=== PATIENT | male | born 1990 | race Hispanic/Latino ===

== ENCOUNTER 2021-12-27 21:33 | Emergency (ER) | payer BC ==
[2021-12-27] MEDS ORDERED: Morphine 4 MG/ML VIAL ONE (22:01)
[2021-12-27] MEDS ORDERED: Ondansetron PF 4 MG/2 ML Vial ONE (22:01)
[2021-12-27 22:10] LABS: #Eosinphils 0.1 thou/uL (0.0-0.7); #Lymphocytes 0.8 thou/uL (1.20-3.40); #Monocytes 0.4 thou/uL (0.11-0.59); #Neutrophils 9.2 thou/uL (1.40-6.50); %Basophils 0.4 % (0.0-1.0); %Eosinophils 0.5 % (0.0-10.0); %Lymphocytes 7.4 % (21.0-51.0); %Monocytes 3.7 % (0.0-10.0); Hemoglobin 15.8 g/dL (14.0-18.0); Mean Corpuscular HGB CONC 33.7 g/dL (32.0-36.0); Mean Corpuscular Hemoglobin 29.4 pg (27.0-31.0); Mean Corpuscular Volume 87.2 fL (78.0-98.0); Mean Platelet Volume 7.7 fL (7.4-10.4); Platelet Count 174 thou/uL (130-400); RBC Distribution Width 13.4 % (11.5-14.5); Red Blood Cell (RBC) Count 5.38 mill/uL (4.70-6.10); White Blood Cell (WBC) Count 10.5 thou/uL (4.8-10.8)
[2021-12-27 22:29] LABS: ALT (SGPT) 26 U/L (8-55); AST (SGOT) 19 U/L (5-34); Albumin 4.5 g/dL (3.5-5.0); Alkaline Phosphatase 83 U/L (40-110); Anion Gap 16 mmol/L (10-20); BUN (Urea Nitrogen) 15 mg/dL (8.9-20.6); Calc. Creatinine Clearance 0 mL/min (70-130); Calcium 9.2 mg/dL (7.8-10.44); Carbon Dioxide 21 mmol/L (22-29); Chloride 104 mmol/L (98-107); Globulin 3.5 g/dL (2.4-3.5); Glucose 116 mg/dL (70-105); Lipase 30 U/L (8-78); Potassium 3.7 mmol/L (3.5-5.1); Sodium 137 mmol/L (136-145)
== END 2021-12-27 23:15 | disposition home or self-care (01) ==
LOC: ERS 21:33
DX: R11.2 Nausea with vomiting, unspecified (principal); R10.13 Epigastric pain
CPT/HCPCS: 74177; 80053; 83690; 85025; 96374; 96375; J2270; J2405

== ENCOUNTER 2023-02-23 20:52 | Inpatient (IN) | payer BC ==
[2023-02-23] MEDS ORDERED: Magnesium 2 GM/50 ML BAG (IN WATER) ONE (21:13)
[2023-02-23] MEDS ORDERED: Ketorolac Tromethamine 30 MG/ML VIAL ONE (21:13)
[2023-02-23] MEDS ORDERED: diphenhydrAMINE 50 MG/ML VIAL ONE (21:13)
[2023-02-23] MEDS ORDERED: Acetaminophen 325 MG TAB ONE (21:13)
[2023-02-23] MEDS ORDERED: Cefepime 2 GM VIAL ONE (21:40)
[2023-02-23] MEDS ORDERED: Vancomycin HCl 2.5 GM in Sodium Chloride 0.9% 500 ML IVPB SCH (21:45)
[2023-02-23 21:54] LABS: #Monocytes 0.3 thou/uL (0.11-0.59); #Neutrophils 2.9 thou/uL (1.40-6.50); %Basophils 1.1 % (0.0-1.0); %Lymphocytes 14.5 % (21.0-51.0); %Monocytes 7.4 % (0.0-10.0); %Neutrophils 75.2 % (42.0-75.0); Hemoglobin 16.2 g/dL (14.0-18.0); Mean Corpuscular HGB CONC 34.8 g/dL (32.0-36.0); Mean Corpuscular Hemoglobin 29.7 pg (27.0-31.0); Mean Corpuscular Volume 85.2 fl (78.0-98.0); Mean Platelet Volume 10.6 fL (7.4-10.4); Platelet Count 149 10x3/uL (130-400); RBC Distribution Width 14.1 % (11.5-14.5); Red Blood Cell (RBC) Count 5.46 mill/uL (4.70-6.10); White Blood Cell (WBC) Count 3.8 10x3/uL (4.8-10.8)
[2023-02-23] MEDS ORDERED: VANCOMYCIN 2 GRAM/500 ML BAG 2 GM in Premix Bag 1 BAG IVPB SCH (22:00)
[2023-02-23 22:05] LABS: ALT (SGPT) 56 U/L (8-55); AST (SGOT) 31 U/L (5-34); Albumin 4.5 g/dL (3.5-5.0); Alkaline Phosphatase 83 U/L (40-110); Anion Gap 16 mmol/L (10-20); BUN (Urea Nitrogen) 12 mg/dL (8.9-20.6); Bilirubin, Total 0.7 mg/dL (0.2-1.2); Calc. Creatinine Clearance 0 mL/min (70-130); Carbon Dioxide 23 mmol/L (22-29); Chloride 100 mmol/L (98-107); Estimated GFR 96; Globulin 3.5 g/dL (2.4-3.5); Glucose 117 mg/dL (70-105); Lipase 27 U/L (8-78); Potassium 3.8 mmol/L (3.5-5.1); Sodium 135 mmol/L (136-145)
[2023-02-23 22:37] LABS: Bacteria/HPF None Seen HPF (None Seen); Bilirubin Negative (Negative); Blood, Urine Negative (Negative); CAUTI Indications for Culture Dysuria,urgency,freq; Clarity Clear (Clear); Glucose, Urine (Dipstick) Normal (Negative); Ketone, Urine Negative (Negative); Leukocyte Negative Leu/uL (Negative); Nitrite Negative (Negative); Protein, Urine (Dipstick) 20 mg/dL (Neg-Trace); RBC/HPF 0-3 HPF (0-3); Squamous Epithelial None Seen HPF (0-3); Urobilinogen Normal mg/dL (Less than 2); WBC/HPF 0-3 HPF (0-3)
[2023-02-23 22:39] LABS: Urine Culture Reflex No No
[2023-02-23 22:41] LABS: SARS-CoV-2 NAA Rapid Test Not Detected (NotDetected)
[2023-02-23 22:45] LABS: Amphetamine Not Detected (NotDetected); Barbiturates Screen Not Detected (NotDetected); Benzodiazepine Screen Not Detected (NotDetected); Cocaine Metabolite Screen Not Detected (NotDetected); Methadone Not Detected (NotDetected); Methamphetamine Not Detected (NotDetected); Opiate Screen Not Detected (NotDetected); Oxycodone Screen Not Detected (NotDetected); Phencyclidine (PCP) Not Detected (NotDetected); THC/Cannabinoid Screen Not Detected (NotDetected); Tricyclic Screen Not Detected (NotDetected)
[2023-02-24 01:01] VITALS: BMI 38.2
[2023-02-24 01:14] LABS: D-Dimer Test 1.19 *mcg/mL (0.27-0.43)
[2023-02-24] MEDS: Lactated Ringer's 1,000 ML IV SCH ×2 (01:32→08:30)
[2023-02-24 02:22] LABS: HBSAg Index 0.25 S/CO (0-0.99); HIV (1/2) Antibody/Antigen Non-Reactive (NonReactive); HIV 1/2 INDEX 0.09 S/CO (<1.00); Hep A IgM AB Non-Reactive S/CO (NonReactive); Hep A IgM S/CO 0.32 S/CO (0-0.79); Hep B Surf Ag Non-Reactive S/CO (NonReactive); Hep C IgG Ab Non-Reactive S/CO (NonReactive); Hep C Index 0.07 S/CO (0-0.79); Hepatitis B Core IgM Abs Non-Reactive S/CO (NonReactive)
[2023-02-24] MEDS: Acetaminophen 325 MG TAB PO PRN ×2 (03:54→10:45)
[2023-02-24] MEDS ORDERED: Sodium Chloride 0.9% 1,000 ML IV SCH (06:15)
[2023-02-24 07:58] LABS: Prothrombin Time 13.9 sec (12.0-14.7)
[2023-02-24] MEDS ORDERED: cefTRIAXone\\ROCEPHIN 1 GM in Sodium Chloride 0.9% 100 ML IVPB SCH (08:00)
[2023-02-24 08:40] LABS: #Monocytes 0.4 thou/uL (0.11-0.59); #Neutrophils 2.6 thou/uL (1.40-6.50); %Basophils 0.5 % (0.0-1.0); %Lymphocytes 20.6 % (21.0-51.0); %Neutrophils 68.1 % (42.0-75.0); Hemoglobin 15.6 g/dL (14.0-18.0); Mean Corpuscular HGB CONC 34.4 g/dL (32.0-36.0); Mean Corpuscular Hemoglobin 29.7 pg (27.0-31.0); Mean Corpuscular Volume 86.1 fl (78.0-98.0); Mean Platelet Volume 10.4 fL (7.4-10.4); Platelet Count 127 10x3/uL (130-400); RBC Distribution Width 14.5 % (11.5-14.5); Red Blood Cell (RBC) Count 5.26 mill/uL (4.70-6.10); White Blood Cell (WBC) Count 3.8 10x3/uL (4.8-10.8)
[2023-02-24 09:00] LABS: ALT (SGPT) 48 U/L (8-55); AST (SGOT) 30 U/L (5-34); Albumin 3.9 g/dL (3.5-5.0); Alkaline Phosphatase 75 U/L (40-110); Anion Gap 14 mmol/L (10-20); BUN (Urea Nitrogen) 9 mg/dL (8.9-20.6); Bilirubin, Total 0.7 mg/dL (0.2-1.2); Calc. Creatinine Clearance 203 mL/min (70-130); Calcium 8.5 mg/dL (7.8-10.44); Carbon Dioxide 22 mmol/L (22-29); Chloride 104 mmol/L (98-107); Estimated GFR 117; Glucose 115 mg/dL (70-105); Potassium 3.8 mmol/L (3.5-5.1); Protein, Total 6.9 g/dL (6.0-8.3); Sodium 136 mmol/L (136-145)
[2023-02-24] MEDS ORDERED: Iopamidol-370 76% 500 ML MDV (1 ML CHARGE) ONE (10:05)
[2023-02-24] MEDS: Ibuprofen 200 MG TAB PO PRN ×2 (10:46→21:28)
[2023-02-24 12:46] LABS: Legionella Urinary Ag Negative (Negative)
[2023-02-24] MEDS: Ondansetron ODT 4 MG TAB PO PRN (20:51)
[2023-02-25 05:14] LABS: #Monocytes 0.5 thou/uL (0.11-0.59); #Neutrophils 3.1 thou/uL (1.40-6.50); %Basophils 0.4 % (0.0-1.0); %Eosinophils 0.2 % (0.0-10.0); %Lymphocytes 27.2 % (21.0-51.0); %Monocytes 10.3 % (0.0-10.0); %Neutrophils 61.3 % (42.0-75.0); Hemoglobin 15.7 g/dL (14.0-18.0); Mean Corpuscular HGB CONC 33.7 g/dL (32.0-36.0); Mean Corpuscular Hemoglobin 29.6 pg (27.0-31.0); Mean Corpuscular Volume 87.8 fl (78.0-98.0); Mean Platelet Volume 11.1 fL (7.4-10.4); RBC Distribution Width 14.6 % (11.5-14.5); Red Blood Cell (RBC) Count 5.31 mill/uL (4.70-6.10); White Blood Cell (WBC) Count 5.1 10x3/uL (4.8-10.8)
[2023-02-25 05:35] LABS: ALT (SGPT) 47 U/L (8-55); AST (SGOT) 32 U/L (5-34); Alkaline Phosphatase 74 U/L (40-110); Anion Gap 15 mmol/L (10-20); BUN (Urea Nitrogen) 11 mg/dL (8.9-20.6); Bilirubin, Total 0.7 mg/dL (0.2-1.2); Calc. Creatinine Clearance 159 mL/min (70-130); Carbon Dioxide 25 mmol/L (22-29); Chloride 102 mmol/L (98-107); Estimated GFR 91; Globulin 3.3 g/dL (2.4-3.5); Glucose 97 mg/dL (70-105); Potassium 4.2 mmol/L (3.5-5.1); Protein, Total 7.3 g/dL (6.0-8.3); Sodium 138 mmol/L (136-145)
[2023-02-25 05:36] LABS: Platelet Count 121 10x3/uL (130-400)
[2023-02-25] MEDS: Acetaminophen 325 MG TAB PO PRN ×3 (08:21→20:46)
[2023-02-25] MEDS: Ondansetron ODT 4 MG TAB PO PRN ×2 (08:24→20:46)
[2023-02-25] MEDS ORDERED: Lactated Ringer's 1,000 ML IV SCH (10:00)
[2023-02-25] MEDS ORDERED: Metoprolol Tartrate 25 MG TAB PO SCH ×2 (12:15→21:00)
[2023-02-26 04:45] LABS: Hemoglobin 14.7 g/dL (14.0-18.0); Mean Corpuscular HGB CONC 34.1 g/dL (32.0-36.0); Mean Corpuscular Hemoglobin 29.2 pg (27.0-31.0); Mean Corpuscular Volume 85.5 fl (78.0-98.0); Mean Platelet Volume 10.2 fL (7.4-10.4); Platelet Count 123 10x3/uL (130-400); RBC Distribution Width 14.7 % (11.5-14.5); Red Blood Cell (RBC) Count 5.04 mill/uL (4.70-6.10); White Blood Cell (WBC) Count 6.3 10x3/uL (4.8-10.8)
[2023-02-26 04:52] LABS: Hemoglobin A1c 5.4 % (4.0-6.0)
[2023-02-26 04:58] LABS: Delete Auto Diff?? YES; Manual Diff?? YES
[2023-02-26 05:07] LABS: ALT (SGPT) 41 U/L (8-55); AST (SGOT) 29 U/L (5-34); Albumin 3.9 g/dL (3.5-5.0); Alkaline Phosphatase 67 U/L (40-110); Anion Gap 14 mmol/L (10-20); BUN (Urea Nitrogen) 13 mg/dL (8.9-20.6); Bilirubin, Total 1.1 mg/dL (0.2-1.2); Calc. Creatinine Clearance 168 mL/min (70-130); Carbon Dioxide 23 mmol/L (22-29); Cardiac Risk 7.9 (Less than 4.5); Chloride 102 mmol/L (98-107); Cholesterol 151 mg/dl (< 200 Desired); Estimated GFR 97; Globulin 3.4 g/dL (2.4-3.5); Glucose 98 mg/dL (70-105); HDL Cholesterol 19 mg/dL (>60 Neg Risk); LDL Cholesterol, Calculated 97 mg/dL; Potassium 3.8 mmol/L (3.5-5.1); Protein, Total 7.3 g/dL (6.0-8.3); Sodium 135 mmol/L (136-145); Triglycerides 176 mg/dL (Less than 150)
[2023-02-26 05:29] LABS: Band 5 % (5-11); Burr Cells SLIGHT = 2-5 cells HPF (0-1); Large Platelets 3.9 % (0-5); Lymphocytes 22 % (21-51); Microcytosis SLIGHT = 6-15 cells HPF (0-5); Monocytes 20 % (0-10); Neutrophil 47 % (42-75); Platelet Adequacy Comment Platelets Decreased; Polychromasia SLIGHT = 2-3 cells HPF (0-2); Reactive Lymphocytes 5 % (0-10); Total Cell Count 103
[2023-02-26] MEDS: Sacubitril 24MG/Valsartan 26 MG TAB PO SCH ×2 (11:32→20:29)
[2023-02-27 05:46] LABS: #Basophils 0.2 thou/uL (0.0-0.2); #Eosinphils 0.1 thou/uL (0.0-0.7); #Monocytes 0.6 thou/uL (0.11-0.59); #Neutrophils 2.9 thou/uL (1.40-6.50); %Eosinophils 1.1 % (0.0-10.0); %Lymphocytes 53.4 % (21.0-51.0); %Monocytes 7.6 % (0.0-10.0); %Neutrophils 35.4 % (42.0-75.0); Hemoglobin 14.8 g/dL (14.0-18.0); Mean Corpuscular HGB CONC 33.3 g/dL (32.0-36.0); Mean Corpuscular Hemoglobin 28.9 pg (27.0-31.0); Mean Corpuscular Volume 86.9 fl (78.0-98.0); Mean Platelet Volume 11.2 fL (7.4-10.4); Platelet Count 152 10x3/uL (130-400); RBC Distribution Width 14.5 % (11.5-14.5); Red Blood Cell (RBC) Count 5.12 mill/uL (4.70-6.10); White Blood Cell (WBC) Count 8.2 10x3/uL (4.8-10.8)
[2023-02-27 05:55] LABS: Manual Diff?? YES
[2023-02-27 06:26] LABS: ALT (SGPT) 62 U/L (8-55); AST (SGOT) 44 U/L (5-34); Albumin 3.9 g/dL (3.5-5.0); Alkaline Phosphatase 67 U/L (40-110); Anion Gap 15 mmol/L (10-20); BUN (Urea Nitrogen) 14 mg/dL (8.9-20.6); Bilirubin, Total 0.5 mg/dL (0.2-1.2); Calc. Creatinine Clearance 176 mL/min (70-130); Calcium 9.2 mg/dL (7.8-10.44); Carbon Dioxide 22 mmol/L (22-29); Chloride 105 mmol/L (98-107); Estimated GFR 103; Globulin 3.4 g/dL (2.4-3.5); Glucose 98 mg/dL (70-105); Potassium 3.8 mmol/L (3.5-5.1); Protein, Total 7.3 g/dL (6.0-8.3); Sodium 138 mmol/L (136-145)
[2023-02-27 07:46] LABS: Band 5 % (5-11); CellaVision Operator ID LAB.GE; Eosinophils 1 % (0-10); Lymphocytes 34 % (21-51); Monocytes 7 % (0-10); Neutrophil 40 % (42-75); Platelet Adequacy Comment Platelets Normal; Polychromasia SLIGHT = 2-3 cells HPF (0-2); Reactive Lymphocytes 12 % (0-10); Total Cell Count 100
[2023-02-27] MEDS: Sacubitril 24MG/Valsartan 26 MG TAB PO SCH ×2 (08:59→20:42)
[2023-02-27] MEDS ORDERED: Empagliflozin 10 MG TAB PO SCH (10:45)
[2023-02-27 13:24] LABS: SARS-CoV-2 NAA Rapid Test Not Detected (NotDetected)
[2023-02-28 05:44] LABS: #Basophils 0.1 thou/uL (0.0-0.2); #Eosinphils 0.2 thou/uL (0.0-0.7); #Monocytes 0.4 thou/uL (0.11-0.59); #Neutrophils 3.3 thou/uL (1.40-6.50); %Basophils 0.8 % (0.0-1.0); %Eosinophils 1.7 % (0.0-10.0); %Lymphocytes 55.7 % (21.0-51.0); %Monocytes 4.8 % (0.0-10.0); %Neutrophils 36.2 % (42.0-75.0); Mean Corpuscular Hemoglobin 29.3 pg (27.0-31.0); Mean Corpuscular Volume 86.1 fl (78.0-98.0); Mean Platelet Volume 10.8 fL (7.4-10.4); Platelet Count 192 10x3/uL (130-400); RBC Distribution Width 14.4 % (11.5-14.5); Red Blood Cell (RBC) Count 5.12 mill/uL (4.70-6.10)
[2023-02-28 06:47] LABS: ALT (SGPT) 64 U/L (8-55); AST (SGOT) 39 U/L (5-34); Alkaline Phosphatase 65 U/L (40-110); Anion Gap 17 mmol/L (10-20); BUN (Urea Nitrogen) 16 mg/dL (8.9-20.6); Bilirubin, Total 0.4 mg/dL (0.2-1.2); Calc. Creatinine Clearance 203 mL/min (70-130); Calcium 9.3 mg/dL (7.8-10.44); Carbon Dioxide 19 mmol/L (22-29); Chloride 105 mmol/L (98-107); Estimated GFR 117; Globulin 3.6 g/dL (2.4-3.5); Glucose 96 mg/dL (70-105); Protein, Total 7.6 g/dL (6.0-8.3); Sodium 137 mmol/L (136-145)
[2023-02-28] MEDS ORDERED: Spironolactone 25 MG TAB PO SCH (08:00)
[2023-02-28] MEDS ORDERED: Furosemide 20 MG TAB PO SCH (09:00)
[2023-02-28] MEDS ORDERED: Empagliflozin 10 MG TAB PO SCH (09:00)
[2023-02-28] MEDS: Sacubitril 24MG/Valsartan 26 MG TAB PO SCH (09:06)
[2023-02-28 11:34] VITALS: BP 137/94; TEMP 97.9
== END 2023-02-28 13:15 | disposition home or self-care (01) | DRG 315 ==
LOC: ERS 20:52 → T4-B 23:49 → 2NO 02-24 06:04 → OBSVTOIN 02-26 08:42
PROVIDERS: ADMIT Student in an Organized Health Care Education/Training Program; ATTEND Student in an Organized Health Care Education/Training Program
DX: I42.8 Other cardiomyopathies (principal); I50.20 Unspecified systolic (congestive) heart failure; E66.9 Obesity, unspecified; I51.7 Cardiomegaly; R91.1 Solitary pulmonary nodule; G44.209 Tension-type headache, unspecified, not intractable; Z20.822 Contact with and (suspected) exposure to COVID-19; Z68.38 Body mass index [BMI] 38.0-38.9, adult; Z98.890 Other specified postprocedural states; Z90.49 Acquired absence of other specified parts of digestive tract
CPT/HCPCS: 36415; 71045; 71275; 80053; 80061; 80074; 80306; 81001; 82550; 83036; 83605; 83690; 83880; 84145; 84436; 84443; 84479; 84484; 85025; 85379; 87040; 87086; 87389; 87633; 87899; 93005; 93010; 93306; 94760; 96361; 96365; 96366; 96367; 96375; G0378; J0692; J0696; J1200; J1885; J3370; J3475; J3490; J7030; J7050; J7120; Q0162; Q9967; U0002

== ENCOUNTER 2025-08-13 19:16 | Inpatient (IN) | payer BC ==
[2025-08-13] MEDS ORDERED: Acetaminophen 500 MG TAB ONE (19:22)
[2025-08-13 20:18] LABS: #Basophils 0.03 10x3/uL (0.0-0.2); #Eosinophils Less than 0.03 10x3/uL (0.0-0.7); #Monocytes 0.64 10x3/uL (0.11-0.59); #Neutrophils 10.49 10x3/uL (1.40-6.50); %Basophils 0.2 % (0.0-1.0); %Eosinophils 0.1 % (0.0-10.0); %Lymphocytes 8.7 % (21.0-51.0); %Monocytes 5.2 % (0.0-10.0); %Neutrophils 85.4 % (42.0-75.0); Hematocrit 44.9 % (42.0-52.0); Hemoglobin 15.0 g/dL (14.0-18.0); Mean Corpuscular Hemoglobin 27.2 pg (27.0-31.0); Mean Corpuscular Volume 81.3 fL (78.0-98.0); Platelet Count 203 10x3/uL (130-400); Red Blood Cell (RBC) Count 5.52 mill/uL (4.70-6.10); White Blood Cell (WBC) Count 12.29 10x3/uL (4.8-10.8)
[2025-08-13] MEDS ORDERED: cefTRIAXone (ROCEPHIN) 2 GM VIAL ONE (20:29)
[2025-08-13 20:35] LABS: ALT (SGPT) 25 U/L (Less than 45); AST (SGOT) 33 U/L (11-34); Albumin 4.0 g/dL (3.1-4.5); Alkaline Phosphatase 85 U/L (40-110); Anion Gap 18 mmol/L (10-20); BUN (Urea Nitrogen) 12 mg/dL (8.9-20.6); Bilirubin, Total 0.7 mg/dL (0.3-1.2); Calc. Creatinine Clearance 0 mL/min (70-130); Calcium 8.6 mg/dL (7.8-10.44); Carbon Dioxide 21 mmol/L (22-29); Chloride 103 mmol/L (98-107); Globulin 3.5 g/dL (2.4-3.5); Glucose 131 mg/dL (70-105); Potassium 4.0 mmol/L (3.5-5.1); Sodium 138 mmol/L (136-145)
[2025-08-13] MEDS ORDERED: Azithromycin 500 MG VIAL ONE (21:38)
[2025-08-13] MEDS ORDERED: Ketorolac Tromethamine 30 MG (1 mL) VIAL ONE (21:50)
[2025-08-13 22:10] LABS: Bacteria/HPF None Seen HPF (None Seen); CAUTI Indications for Culture Fever or rigors; Glucose, Urine (Dipstick) Normal (Negative); Leukocyte Negative Leu/uL (Negative); Protein, Urine (Dipstick) 10 mg/dL (Neg-Trace); RBC/HPF 0-3 HPF (0-3); Specific Gravity, Urine 1.013 (1.002-1.036); WBC/HPF None Seen HPF (0-3)
[2025-08-13 22:12] LABS: Urine Culture Reflex No No
[2025-08-13] MEDS ORDERED: Benzonatate 100 MG CAP PO PRN (22:15)
[2025-08-13 23:15] LABS: Legionella Urinary Ag Negative (Negative); Strep pneumo Urine Ag NEGATIVE (NEGATIVE)
[2025-08-14 01:16] VITALS: BMI 38.4
[2025-08-14] MEDS: Ketorolac Tromethamine 30 MG (1 mL) VIAL IVP SCH (04:18)
[2025-08-14] MEDS: Ondansetron PF 4 MG/2 ML Vial IVP PRN (04:24)
[2025-08-14 06:54] LABS: #Basophils 0.03 10x3/uL (0.0-0.2); #Eosinophils Less than 0.03 10x3/uL (0.0-0.7); #Monocytes 0.86 10x3/uL (0.11-0.59); #Neutrophils 10.29 10x3/uL (1.40-6.50); %Basophils 0.2 % (0.0-1.0); %Eosinophils 0.1 % (0.0-10.0); %Lymphocytes 8.5 % (21.0-51.0); %Monocytes 7.0 % (0.0-10.0); %Neutrophils 83.6 % (42.0-75.0); Hematocrit 47.1 % (42.0-52.0); Hemoglobin 15.3 g/dL (14.0-18.0); Mean Corpuscular Hemoglobin 26.8 pg (27.0-31.0); Mean Corpuscular Volume 82.5 fL (78.0-98.0); Platelet Count 194 10x3/uL (130-400); Red Blood Cell (RBC) Count 5.71 mill/uL (4.70-6.10); White Blood Cell (WBC) Count 12.31 10x3/uL (4.8-10.8)
[2025-08-14 07:19] LABS: Anion Gap 17 mmol/L (10-20); BUN (Urea Nitrogen) 12 mg/dL (8.9-20.6); Calc. Creatinine Clearance 169 mL/min (70-130); Calcium 8.4 mg/dL (7.8-10.44); Carbon Dioxide 20 mmol/L (22-29); Chloride 103 mmol/L (98-107); Glucose 151 mg/dL (70-105); Potassium 3.4 mmol/L (3.5-5.1); Sodium 137 mmol/L (136-145)
[2025-08-14] MEDS: Acetaminophen 325 MG TAB PO PRN (08:23)
[2025-08-14] MEDS: Furosemide 20 MG (2 mL) VIAL SLOW IVP SCH (08:25)
[2025-08-14] MEDS: Carvedilol 6.25 MG TAB PO SCH ×2 (10:25→17:25)
[2025-08-14] MEDS: Spironolactone 25 MG TAB PO SCH (10:26)
[2025-08-14] MEDS: Clindamycin 150 MG CAP PO SCH (12:22)
[2025-08-14] MEDS ORDERED: Iopamidol 370 76% 100 ML VIAL ONE (14:13)
[2025-08-14] MEDS: Ibuprofen 600 MG TAB PO PRN (20:54)
[2025-08-14] MEDS: Sacubitril 24MG/Valsartan 26 MG TAB PO SCH (20:54)
[2025-08-14] MEDS: Benzocaine/Menthol 1 LOZ LOZ PO PRN (20:54)
[2025-08-14] MEDS ORDERED: cefTRIAXone\\ROCEPHIN 1 GM in Sodium Chloride 0.9% 100 ML IVPB SCH (21:00)
[2025-08-14] MEDS ORDERED: Azithromycin 500 MG in Sodium Chloride 0.9% 250 ML 250 ML IVPB SCH (22:00)
[2025-08-15 05:40] LABS: #Basophils 0.04 10x3/uL (0.0-0.2); #Eosinophils Less than 0.03 10x3/uL (0.0-0.7); #Monocytes 1.15 10x3/uL (0.11-0.59); #Neutrophils 12.51 10x3/uL (1.40-6.50); %Basophils 0.3 % (0.0-1.0); %Eosinophils 0.1 % (0.0-10.0); %Lymphocytes 10.4 % (21.0-51.0); %Monocytes 7.5 % (0.0-10.0); %Neutrophils 81.2 % (42.0-75.0); Hematocrit 44.6 % (42.0-52.0); Hemoglobin 14.7 g/dL (14.0-18.0); Mean Corpuscular Hemoglobin 27.1 pg (27.0-31.0); Mean Corpuscular Volume 82.3 fL (78.0-98.0); Platelet Count 181 10x3/uL (130-400); Red Blood Cell (RBC) Count 5.42 mill/uL (4.70-6.10); White Blood Cell (WBC) Count 15.40 10x3/uL (4.8-10.8)
[2025-08-15 06:00] LABS: Anion Gap 14 mmol/L (10-20); BUN (Urea Nitrogen) 20 mg/dL (8.9-20.6); Calc. Creatinine Clearance 129 mL/min (70-130); Calcium 8.7 mg/dL (7.8-10.44); Carbon Dioxide 24 mmol/L (22-29); Chloride 103 mmol/L (98-107); Glucose 141 mg/dL (70-105); Potassium 3.8 mmol/L (3.5-5.1); Sodium 137 mmol/L (136-145)
[2025-08-15] MEDS: Spironolactone 25 MG TAB PO SCH (07:31)
[2025-08-15] MEDS: Vancomycin (BATCH) 2.5 GM in Premix 1 BAG IVPB SCH (09:39)
[2025-08-15] MEDS: Vancomycin 1 GM in Premix 1 BAG IVPB SCH (16:52)
[2025-08-16 05:47] LABS: #Basophils 0.04 10x3/uL (0.0-0.2); #Eosinophils 0.15 10x3/uL (0.0-0.7); #Monocytes 1.05 10x3/uL (0.11-0.59); #Neutrophils 6.00 10x3/uL (1.40-6.50); %Basophils 0.4 % (0.0-1.0); %Eosinophils 1.5 % (0.0-10.0); %Lymphocytes 25.5 % (21.0-51.0); %Monocytes 10.7 % (0.0-10.0); %Neutrophils 61.3 % (42.0-75.0); Hematocrit 44.1 % (42.0-52.0); Hemoglobin 14.3 g/dL (14.0-18.0); Mean Corpuscular Hemoglobin 26.9 pg (27.0-31.0); Mean Corpuscular Volume 83.1 fL (78.0-98.0); Platelet Count 205 10x3/uL (130-400); Red Blood Cell (RBC) Count 5.31 mill/uL (4.70-6.10); White Blood Cell (WBC) Count 9.80 10x3/uL (4.8-10.8)
[2025-08-16 06:13] LABS: Vancomycin, Random 19.0 ug/mL (See Comment)
[2025-08-16 06:28] LABS: Anion Gap 13 mmol/L (10-20); BUN (Urea Nitrogen) 16 mg/dL (8.9-20.6); CRP, High Sensitivity at Bryan 9.29 mg/dL (< or = 0.5); Calc. Creatinine Clearance 144 mL/min (70-130); Calcium 8.6 mg/dL (7.8-10.44); Carbon Dioxide 24 mmol/L (22-29); Chloride 107 mmol/L (98-107); Glucose 99 mg/dL (70-105); Magnesium 2.2 mg/dL (1.6-2.6); Potassium 4.2 mmol/L (3.5-5.1); Sodium 140 mmol/L (136-145)
[2025-08-17 05:12] LABS: #Basophils 0.03 10x3/uL (0.0-0.2); #Eosinophils 0.16 10x3/uL (0.0-0.7); #Monocytes 0.51 10x3/uL (0.11-0.59); #Neutrophils 5.08 10x3/uL (1.40-6.50); %Basophils 0.4 % (0.0-1.0); %Eosinophils 2.0 % (0.0-10.0); %Lymphocytes 27.5 % (21.0-51.0); %Monocytes 6.4 % (0.0-10.0); %Neutrophils 63.2 % (42.0-75.0); Hematocrit 44.4 % (42.0-52.0); Hemoglobin 14.5 g/dL (14.0-18.0); Mean Corpuscular Hemoglobin 26.9 pg (27.0-31.0); Mean Corpuscular Volume 82.4 fL (78.0-98.0); Platelet Count 212 10x3/uL (130-400); Red Blood Cell (RBC) Count 5.39 mill/uL (4.70-6.10); White Blood Cell (WBC) Count 8.03 10x3/uL (4.8-10.8)
[2025-08-17 05:33] LABS: Anion Gap 13 mmol/L (10-20); BUN (Urea Nitrogen) 16 mg/dL (8.9-20.6); Calc. Creatinine Clearance 187 mL/min (70-130); Calcium 8.6 mg/dL (7.8-10.44); Carbon Dioxide 20 mmol/L (22-29); Chloride 110 mmol/L (98-107); Glucose 96 mg/dL (70-105); Potassium 3.8 mmol/L (3.5-5.1); Sodium 139 mmol/L (136-145)
[2025-08-18 06:05] LABS: Vancomycin, Random 21.4 ug/mL (See Comment)
[2025-08-18 06:12] LABS: Anion Gap 12 mmol/L (10-20); BUN (Urea Nitrogen) 13 mg/dL (8.9-20.6); Calc. Creatinine Clearance 170 mL/min (70-130); Calcium 8.8 mg/dL (7.8-10.44); Carbon Dioxide 19 mmol/L (22-29); Chloride 111 mmol/L (98-107); Glucose 121 mg/dL (70-105); Potassium 3.8 mmol/L (3.5-5.1); Sodium 138 mmol/L (136-145)
[2025-08-18 15:58] VITALS: BP 110/67; TEMP 98.2
== END 2025-08-18 17:44 | disposition home health service (06) | DRG 871 ==
LOC: ERS 19:16 → ERHOLD 22:00 → OBS 22:14 → OBSVTOIN 08-14 09:24
PROVIDERS: ADMIT Internal Medicine; ATTEND Family Medicine
PROC: 3E03329 Introduction of Other Anti-infective into Peripheral Vein, Percutaneous Approach (ICD-10-PCS; principal; 2025-08-15)
PROC: 05HY33Z Insertion of Infusion Device into Upper Vein, Percutaneous Approach (ICD-10-PCS; 2025-08-17)
DX: A41.9 Sepsis, unspecified organism (principal); I50.23 Acute on chronic systolic (congestive) heart failure; J18.9 Pneumonia, unspecified organism; J96.01 Acute respiratory failure with hypoxia; I42.8 Other cardiomyopathies; R65.20 Severe sepsis without septic shock; Z90.49 Acquired absence of other specified parts of digestive tract; Z90.89 Acquired absence of other organs; Z98.890 Other specified postprocedural states
CPT/HCPCS: 36415; 71045; 71275; 80048; 80053; 80202; 81001; 83605; 83735; 83880; 84145; 85025; 86141; 87040; 87070; 87205; 87428; 87449; 87633; 87899; 93005; 94640; J0456; J0692; J0696; J1885; J1940; J2405; J3373; Q9967